=== PATIENT | female | born 1975 | race Asian ===

== ENCOUNTER 2020-09-06 11:32 | Emergency (ER) | payer OTHER ==
[~2020-09-06] VITALS: Ht 170.2 cm; Wt 97.5 kg
[2020-09-06 13:14] LABS: ABSOLUTE NEUTROPHILS 4.1 thou/uL (1.4-8.2); BASOPHILS 0.8 % (0.0-2.0); EOSINOPHILS 1.9 % (0.0-3.0); HEMATOCRIT 39.4 % (37.0-47.0); HEMOGLOBIN 13.4 gm/dL (12.0-15.0); LYMPHOCYTES 31.2 % (24.0-44.0); MCHC 34.1 g/dL (28.0-37.0); MONOCYTES 7.9 % (1.0-8.0); PLATELET COUNT 349 thou/uL (150-400); POLYS 58.2 % (36.0-66.0); RBC 4.48 mil/uL (4.20-5.00); RDW 14.1 % (10.5-14.5)
[2020-09-06 13:20] LABS: CALCIUM 8.7 mg/dL (8.5-10.1); CREATININE 0.6 mg/dL (0.6-1.0); POTASSIUM 3.6 mmol/L (3.5-5.1)
[2020-09-06 13:27] LABS: ALBUMIN 3.4 g/dL (3.4-5.0); TOTAL BILIRUBIN 0.3 mg/dL (0.2-1.0); TOTAL PROTEIN 7.7 g/dL (6.4-8.2)
[2020-09-06 13:34] LABS: BE(vivo) -1.3 mmol/L (-2 to +3); HCO3 23.2 mmol/L (22.0-26.0); PCO2 38.5 mmHg (35.0-45.0); PO2 81.7 mmHg (80.0-100.0); pH 7.398 (7.360-7.450); sO2 96.1 % (92.0-98.0)
[2020-09-06] MEDS ORDERED: LISINOPRIL5 MG PO (13:45)
[2020-09-06 13:56] VITALS: BP 143/83
== END 2020-09-06 13:57 | disposition home or self-care (01) ==
LOC: ER 11:32
PROVIDERS: Physician Assistant
DX: I10 Essential (primary) hypertension (principal)

== ENCOUNTER 2020-11-11 22:35 | Emergency (ER) | payer OTHER ==
[~2020-11-11] VITALS: Ht 170.2 cm; Wt 94.3 kg
[~2020-11-11 22:35] MED LIST: LISINOPRIL5 MG PO
[2020-11-12] MEDS ORDERED: NAPROSYN500 MG PO (00:44)
[2020-11-12 01:22] VITALS: BP 192/85
== END 2020-11-12 01:24 | disposition home or self-care (01) ==
LOC: ER 22:35
DX: S60.211A Contusion of right wrist, initial encounter (principal); S49.81XA Other specified injuries of right shoulder and upper arm, initial encounter; W25.XXXA Contact with sharp glass, initial encounter; Y93.89 Activity, other specified; Y92.89 Other specified places as the place of occurrence of the external cause; Y99.8 Other external cause status